=== PATIENT | female | born 1980 | race Caucasian/White ===

== ENCOUNTER 2017-06-04 11:43 | Emergency (ER) | payer OTHER ==
[~2017-06-04] VITALS: Ht 160 cm; Wt 63.0 kg
[2017-06-04 12:05] VITALS: Ht 160 cm; Wt 63.0 kg
[2017-06-04] MEDS ORDERED: ONDANSETRON (ODT) 4 MG TAB ODT STA (13:09)
[2017-06-04] MEDS ORDERED: HYDROCODONE/APAP (5/325) TAB PO ONE (13:30)
[2017-06-04] MEDS ORDERED: BUPIVACAINE 0.5% (MPF) 30 ML INJ EPI ONE (13:30)
[2017-06-04] MEDS ORDERED: MED4DP PO (13:57)
[2017-06-04] MEDS ORDERED: HYDR-906 PO (13:57)
[2017-06-04] MEDS ORDERED: NAPR-260 PO (13:57)
--- NOTE | 2017-06-04 15:12 | ERD ---
ER Documentation Chief Complaint Date/Time DATE: 06/04/17 TIME: 15:09 Chief Complaint Complains of left shoulder pain x 1 month ago HPI 37-year-old female complaining of left posterior shoulder pain. Patient states his been going on for the last 1.5 months. Took ibuprofen with no alleviation. Also using icy hot. She was seen at outside hospital and given steroids with Vicodin. Pain was alleviated with that medication. Patient is right-hand dominant. Her left shoulder pain is worse with movement. Alleviated with rest. Denies numbness or tingling down her arm. ROS All systems reviewed and are negative except as per history of present illness. Medications Home Meds Active Scripts Hydrocodone/Acetaminophen ([place] 5-325 Tablet) 1 Each Tablet, 1 TAB PO Q6H Y for PAIN, #10 TAB Prov:TUYET CARPENTER PA-C 06/04/17 Naproxen* (Naprosyn*) 500 Mg Tablet, 500 MG PO BID Y for PAIN AND/OR INFLAMMATION, #30 TAB Prov:TUYET CARPENTER PA-C 06/04/17 Methylprednisolone* (Medrol* DOSE PACK) 4 Mg/Dose-Pack Tab.ds.pk, 4 MG PO . DIRECTED, #1 PACKET Prov:TUYET CARPENTER PA-C 06/04/17 Allergies Allergies: Coded Allergies: No Known Allergy (Unverified , 09/23/13) PMhx/Soc Medical and Surgical Hx: pt denies Medical Hx, pt denies Surgical Hx Physical Exam Vitals Vital Signs Date Time Temp Pulse Resp B/P Pulse Ox O2 Delivery O2 Flow Rate FiO2 06/04/17 12:05 98.7 113 20 164/103 98 Physical Exam GENERAL: The patient is well-appearing, well-nourished, in no acute distress CHEST: Clear to auscultation bilaterally. There are no rales, wheezes or rhonchi. HEART: Regular rate and rhythm. No murmurs, clicks, rubs or gallops. No S3 or S4. EXTREMITIES: Equal pulses bilaterally. There is no peripheral clubbing, cyanosis or edema. No focal swelling or erythema. Full range of motion. Grossly neurovascularly intact. Tender to palpation over left superior rhomboid. NEUROLOGIC: Alert and oriented. Cranial nerves II through XII intact. Motor strength in all 4 extremities with 5 out of 5 strength. Sensation grossly intact. Normal speech and gait. Babinski negative. DTR 2+ throughout. SKIN: There is no apparent rash or petechiae. The skin is warm and dry. Results 24 hrs Current Medications Medications (Trade) Dose Ordered Sig/Neymar Route PRN Reason Start Time Stop Time Status Last Admin Dose Admin Bupivacaine HCl (Marcaine 0.5% (Mpf)) 30 ml ONCE ONCE EPI 06/04/17 13:30 06/04/17 13:31 DC Acetaminophen/ Hydrocodone Bitart ([place] (5/325)) 1 tab ONCE ONCE PO 06/04/17 13:30 06/04/17 13:31 DC 06/04/17 13:35 Ondansetron HCl (Zofran Odt) 4 mg ONCE STAT ODT 06/04/17 13:09 06/04/17 13:10 DC 06/04/17 13:35 Procedures/MDM ER course: 5Cc of Marcaine with epinephrine injected into left superior rhomboid. She tolerated trigger point injection well. MDM: I have low suspicion for acute fracture dislocation. I have low suspicion for shingles. No rashes appreciated on exam. I have low suspicion for tendon or ligament injury or neurodeficit. Patient's exam is not concerning. Patient is told if symptoms change or worsen to return the ER. All questions answered at discharge. Patient is sent home with pain medications and more steroids. She was told to follow up with ortho in 1-2 days Departure Diagnosis: Primary Impression: Cervical radiculopathy Condition: Stable Patient Instructions: Radiculopathy, Cervical Referrals: COUNT INCLUDES THE [facility] YOU HAVE RECEIVED A MEDICAL SCREENING EXAM AND THE RESULTS INDICATE THAT YOU DO NOT HAVE A CONDITION THAT REQUIRES URGENT TREATMENT IN THE EMERGENCY DEPARTMENT. FURTHER EVALUATION AND TREATMENT OF YOUR CONDITION CAN WAIT UNTIL YOU ARE SEEN IN YOUR DOCTORS OFFICE WITHIN THE NEXT 1-2 DAYS. IT IS YOUR RESPONSIBILITY TO MAKE AN APPOINTMENT FOR FOLOW-UP CARE. IF YOU HAVE A PRIMARY DOCTOR --you should call your primary doctor and schedule an appointment IF YOU DO NOT HAVE A PRIMARY DOCTOR YOU CAN CALL OUR PHYSICIAN REFERRAL HOTLINE AT IF YOU CAN NOT AFFORD TO SEE A PHYSICIAN YOU CAN CHOSE FROM THE FOLLOWING [facility] [id number] [facility]818) [phone] [facility]. [facility] [address] [facility] [address] [facility]. [facility] [address] [facility]. [facility] [address] Additional Instructions: FOLLOW UP WITH YOUR PRIMARY CARE PHYSICIAN TOMORROW.Return to this facility if you are not improving as expected. TUYET CARPENTER PA-C Jun 04, 2017 15:12
== END 2017-06-04 14:07 | disposition home or self-care (01) ==
LOC: FTE 11:43
DX: M54.12 Radiculopathy, cervical region (principal)
CPT/HCPCS: 20552; Z7502; Z7610